=== PATIENT | male | born 1950 | race Caucasian/White ===

== ENCOUNTER 2020-05-15 23:57 | Emergency (ER) | payer OTHER ==
[2020-05-16] MEDS ORDERED: SODIUM CHLORIDE 0.9% 1,000 ML IV STA (00:25)
--- NOTE | 2020-05-16 00:42 | ED Physician Documentation ---
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 He was out for about an hour hour and a half. When he came inside and sat down he felt dizzy. He is unable to describe this further. He denies room spinning he denies lightheadedness. Just does not feel right. 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 His notes that usually has some edema to his lower extremities he do es not today. Review of Systems Constitutional: denies: Fever Eyes: denies: Decreased vision Ears: denies: Ear pain Nose: denies: Rhinorrhea / runny nose, Congestion Throat: denies: Sore throat Cardiac: denies: Chest pain / pressure, Palpitations Respiratory: denies: Dyspnea, Cough GI: denies: Abdominal Pain, Nausea, Vomiting : denies: Dysuria, Frequency Skin: denies: Rash, Lesions, Abrasion (s) Musculoskeletal: denies: Neck pain, Back pain, Extremity pain Neurologic: denies: Generalized weakness, Focal weakness, Numbness PD PAST MEDICAL HISTORY - Present Medications Home Medications: Ambulatory Orders Medication Instructions Recorded Confirmed Amox/Clav 875/125 [Augmentin] 1 each PO Q12H #20 tablet 05/16/20 - Allergies Allergies/Adverse Reactions: Allergies Allergy/AdvReac Type Severity Reaction Status Date / Time No Known Drug Allergies Allergy Verified 05/16/20 00:00 PD ED PE NORMAL - Vitals Vital signs reviewed: Yes (Hypertensive) - General General: Alert and oriented X 3, No acute distress, Well developed/nourished - HEENT HEENT: Atraumatic, PERRL, EOMI, Pharynx benign, Other (The right TM has inflammation along the umbo without distortion of landmarks the left TM is not visualized secondary to dense cerumen impaction.Mucous membranes are dry. There is no nystagmus) - Neck Neck: Supple, no meningeal sign, No bony TTP - Cardiac Cardiac: RRR, No murmur - Respiratory Respiratory: No respiratory distress, Clear bilaterally - Abdomen Abdomen: Normal bowel sounds, Soft, Non tender, Non distended, No organomegaly - Back Back: No CVA TTP, No spinal TTP - Derm Derm: Normal color, Warm and dry, No rash - Extremities Extremities: No deformity, Normal ROM s pain, No edema, No calf tenderness / cord - Neuro Neuro: Alert and oriented X 3, method consultant 2-12 intact Eye Opening: To Voice Motor: Obeys Commands Verbal: Oriented GCS Score: 14 - Psych Psych: Normal mood, Normal affect Results - Vitals Vitals: Vital Signs - 24 hr 05/16/20 05/16/20 05/16/20 00:00 02:07 04:07 Temperature 36.5 C Heart Rate 78 63 72 Respiratory 16 15 16 Rate Blood Pressure 189/89 H 164/86 H 142/89 H O2 Saturation 96 95 100 05/16/20 04:48 Temperature Heart Rate 78 Respiratory 16 Rate Blood Pressure 172/83 H O2 Saturation 95 Oxygen O2 Source Room air - EKG (time done) 00:14 Rate: Rate (enter#) (76) Intervals: Prolonged CA (borderline), Prolonged QT (borderline) Compare to prior EKG: Old EKG unavailable Computer interpretation: Agree with computer - Labs Labs: Laboratory Tests 05/16/20 05/16/20 05/16/20 00:45 00:45 00:45 WBC 6.1 RBC 4.69 L Hgb 16.0 Hct 45.4 MCV 96.8 H MCH 34.1 H MCHC 35.2 RDW 13.4 Plt Count 92 L MPV 11.2 Neut # (Auto) 5.3 Lymph # (Auto) 0.6 L [place] # (Auto) 0.2 Eos # (Auto) 0.0 Baso # (Auto) 0.0 Absolute Nucleated RBC 0.00 Nucleated RBC % 0.0 Sodium 134 L Potassium 3.9 Chloride 101 Carbon Dioxide 22 Anion Gap 11.0 BUN 16 Creatinine 0.8 Estimated GFR (MDRD) 96 Glucose 179 H Lactic Acid Calcium 8.9 Total Bilirubin 2.2 H AST 53 H ALT 50 Alkaline Phosphatase 94 Troponin I High Sens 15.5 Total Protein 7.6 Albumin 4.2 Globulin 3.4 Albumin/Globulin Ratio 1.2 Lipase 27 Urine Color Urine Clarity Urine pH Ur Specific [place] Urine Protein Urine Glucose (UA) Urine Ketones Urine Occult Blood Urine Nitrite Urine Bilirubin Urine Urobilinogen Ur Leukocyte Esterase Ur Microscopic Review Urine Culture Comments 05/16/20 05/16/20 00:45 01:21 WBC RBC Hgb Hct MCV MCH MCHC RDW Plt Count MPV Neut # (Auto) Lymph # (Auto) [place] # (Auto) Eos # (Auto) Baso # (Auto) Absolute Nucleated RBC Nucleated RBC % Sodium Potassium Chloride Carbon Dioxide Anion Gap BUN Creatinine Estimated GFR (MDRD) Glucose Lactic Acid 3.0 H* Calcium Total Bilirubin AST ALT Alkaline Phosphatase Troponin I High Sens Total Protein Albumin Globulin Albumin/Globulin Ratio Lipase Urine Color YELLOW Urine Clarity CLEAR Urine pH 6.0 Ur Specific [place] 1.025 Urine Protein NEGATIVE Urine Glucose (UA) 100 H Urine Ketones 15 H Urine Occult Blood NEGATIVE Urine Nitrite NEGATIVE Urine Bilirubin NEGATIVE Urine Urobilinogen 0.2 (NORMAL) Ur Leukocyte Esterase NEGATIVE Ur Microscopic Review NOT INDICATED Urine Culture Comments NOT INDICATED - Rads (name of study) chest Radiology: Prelim report reviewed (Impression: No consolidation), EMP read indepedently (On my read there is a questionable subtle infiltrate in the left base.), See rad report Procedures - IVC sono (time) 1214 Bedside IVC sono: IVC measures (cm) (1.05), IVC collapsed c insp (cm) (complete), Dehydration (est 1-2 liter deficit) PD MEDICAL DECISION MAKING - ED course Complexity details: reviewed results, re-evaluated patient, considered differential, d/w patient, d/w family ED course: 69-year-old male working outside today does not feel well presents to the emergency department on physical exam findings he does have some mild erythema to the right umbo. He does not have other symptoms of otitis. He is found to be dehydrated on interrogation the inferior vena cava. Is administered intravenous saline. He did not have nystagmus to suggest a labyrinthine cause of his dizziness. Patient improves with a liter of saline for hydration and we have treated him for the otitis on the right with Augmentin. I took a look at his chest x-ray personally and felt that he may have an infiltrate in the left base. Departure - Departure Disposition: 01 Home, Self Care Clinical Impression: Dehydration Otitis media Qualifiers: Otitis media type: suppurative Chronicity: acute Laterality: right Recurrence: non-recurrent Spontaneous tympanic membrane rupture: without spontaneous rupture Qualified Code(s): H66.001 - Acute suppurative otitis media without spontaneous rupture of ear drum, right ear Condition: Stable Instructions: ED Dehydration, ED Otitis Media Acute Adult Follow-Up: Jeremy Bai MD [Primary Care Provider] - Prescriptions: Amox/Clav 875/125 [Augmentin] 1 each PO Q12H #20 tablet Discharge Date/Time: 05/16/20 04:48
[2020-05-16 00:52] LABS: BASOPHILS % (AUTO) 0.3 %; EOSINOPHILS % (AUTO) 0.2 %; LYMPHOCYTES # (AUTO) 0.6 10^3/uL (1.5-3.5); MEAN CORPUSCULAR HEMOGLOBIN 34.1 pg (27.0-31.0); MEAN CORPUSCULAR HGB CONC 35.2 g/dL (32.0-36.0); MEAN CORPUSCULAR VOLUME 96.8 fL (80.0-94.0); MEAN PLATELET VOLUME 11.2 fL (7.4-11.4); MONOCYTES # (AUTO) 0.2 10^3/uL (0.0-1.0); MONOCYTES % (AUTO) 3.6 %; NEUTROPHILS # (AUTO) 5.3 10^3/uL (1.5-6.6); NEUTROPHILS % (AUTO) 86.4 %; PLT - PLATELET COUNT 92 10^3/uL (130-450); RED BLOOD COUNT 4.69 10^6/uL (4.70-6.10); RED CELL DISTRIBUTION WIDTH 13.4 % (12.0-15.0); WHITE BLOOD COUNT 6.1 x10^3/uL (4.8-10.8)
[2020-05-16 01:02] LABS: ALBUMIN 4.2 g/dL (3.2-5.5); ALBUMIN/GLOBULIN RATIO 1.2 (1.0-2.2); BILIRUBIN,TOTAL 2.2 mg/dL (0.2-1.0); CALCIUM 8.9 mg/dL (8.5-10.3); CREATININE 0.8 mg/dL (0.6-1.2); TOTAL PROTEIN 7.6 g/dL (6.7-8.2)
[2020-05-16 01:31] LABS: BILIRUBIN,URINE NEGATIVE (NEGATIVE); CLARITY,URINE CLEAR (CLEAR); GLUCOSE, URINE (UA) 100 mg/dL (NEGATIVE); KETONES,URINE (UA) 15 mg/dL (NEGATIVE); LEUKOCYTE ESTERASE, URINE NEGATIVE (NEGATIVE); NITRITE,URINE NEGATIVE (NEGATIVE); OCCULT BLOOD,URINE NEGATIVE (NEGATIVE); PROTEIN,URINE NEGATIVE (NEGATIVE); UROBILINOGEN,URINE 0.2 (NORMAL) E.U./dL (NORMAL)
[2020-05-16] MEDS ORDERED: AMOX/CLAV 875 MG/125 MG TABLET PO STA (04:34)
[2020-05-16 04:48] VITALS: BP 172/83
--- NOTE | 2020-05-16 09:39 | XRAY Report ---
PROCEDURE: Chest 1 View X-Ray INDICATIONS: chest pain TECHNIQUE: One view of the chest was acquired. COMPARISON: None FINDINGS: Surgical changes and devices: None. Lungs and pleura: No pleural effusions or pneumothorax. Lungs are clear. Mediastinum: Mediastinal contours appear normal. Heart size is mildly prominent. Bones and chest wall: No suspicious bony lesions. Overlying soft tissues appear unremarkable. IMPRESSION: No acute pulmonary process. The above findings are concordant with preliminary report. Reviewed by: Alicja Awan MD on 05/16/2020 9:37 AM PDT Approved by: Alicja Awan MD on 05/16/2020 9:37 AM PDT Station ID: [id number]
== END 2020-05-16 04:48 | disposition home or self-care (01) ==
LOC: ED 23:57
DX: E86.0 Dehydration (principal); H66.001 Acute suppurative otitis media without spontaneous rupture of ear drum, right ear; H61.22 Impacted cerumen, left ear; R91.8 Other nonspecific abnormal finding of lung field
CPT/HCPCS: 36415; 71045; 80053; 81003; 83605; 83690; 84484; 85025; 93005; 96360; 99284; A9270; 81001; 87086

== ENCOUNTER 2021-11-02 11:43 | Outpatient (CLI) | payer OTHER ==
[2021-11-02 15:23] LABS: ALBUMIN 3.7 g/dL (3.2-5.5); ALBUMIN/GLOBULIN RATIO 1.1 (1.0-2.2); BILIRUBIN,TOTAL 3.4 mg/dL (0.2-1.0); CALCIUM 9.2 mg/dL (8.5-10.3); CREATININE 0.8 mg/dL (0.6-1.2); POTASSIUM 3.8 mmol/L (3.5-5.0); TOTAL PROTEIN 7.2 g/dL (6.7-8.2)
--- NOTE | 2021-11-02 15:35 | XRAY Report ---
PROCEDURE: Shoulder 3 View RT INDICATIONS: PAIN OF RIGHT SHOULDER JOINT TECHNIQUE: 3 views of the shoulder were acquired. COMPARISON: None. FINDINGS: Bones: No fractures or dislocations. Moderate acromioclavicular joint and glenohumeral joint osteoar thritic changes are seen. No suspicious bony lesions. Visualized ribs appear intact. Soft tissues: No suspicious soft tissue calcifications. IMPRESSION: Moderate acromioclavicular joint and glenohumeral joint osteoarthritis. No shoulder frac ture or dislocation. No gross soft tissue abnormality. Reviewed by: Wesley Hebert MD on 11/02/2021 3:34 PM PST Approved by: Wesley Hebert MD on 11/02/2021 3:34 PM PST Station ID: [id number]
--- NOTE | 2021-11-02 15:35 | XRAY Report ---
PROCEDURE: Hip w/Pelvis 2-3V RT INDICATIONS: PAIN IN RIGHT HIP TECHNIQUE: AP pelvis with lateral view(s) of the right hip(s). COMPARISON: None. FINDINGS: Bones: No fractures or dislocations. Mild to moderate right hip joint osteoarthritic changes are see n with superior joint space narrowing, subchondral sclerosis and cyst formation and lateral marginal osteophyte formation. Prominence of the right femoral head neck junction is also seen which can be se en associated with cam-type femoral acetabular impingement. No avascular necrosis of femoral head. P elvic ring appears intact. No suspicious bony lesions. Soft tissues: The visualized bowel gas pattern is normal. No suspicious soft tissue calcifications. IMPRESSION: Mild to moderate right hip joint osteoarthritis. No fracture or dislocation. No evidence of avascular necrosis. Prominence of right femoral head neck junction which can be seen associated wi th cam-type femoral acetabular impingement. Reviewed by: Wesley Hebert MD on 11/02/2021 3:33 PM PST Approved by: Wesley Hebert MD on 11/02/2021 3:33 PM PST Station ID: [id number]
== END 2021-11-02 11:44 | disposition home or self-care (01) ==
LOC: DI.S 11:43
PROVIDERS: ATTEND Nurse Practitioner Family
DX: M19.011 Primary osteoarthritis, right shoulder (principal); M16.11 Unilateral primary osteoarthritis, right hip; R93.6 Abnormal findings on diagnostic imaging of limbs
CPT/HCPCS: 36415; 80053

== ENCOUNTER 2022-01-10 12:33 | Outpatient (CLI) | payer OTHER ==
--- NOTE | 2022-01-10 14:08 | Ultrasound Report ---
PROCEDURE: Abdomen Limited INDICATIONS: ELEVATED LIVER TRANSAMINSE LEVELS TECHNIQUE: Real-time focused scanning was performed of the abdomen, with image documentation. COMPARISON: None FINDINGS: The gallbladder is normal without stones, sludge, wall thickening, pericholecystic fluid, or sign. Probable fatty sparing in the gallbladder fossa. The liver is normal size measuring about 17 cm in length. The parenchyma is diffusely hyperechoic and quite coarse in echotexture. The liver surface appears micronodular. There is a cyst in the anterior right hepatic lobe measuring 2.2 cm. The distal pancreas is not well seen. The proximal portion appears normal. The right kidney is normal in morphology without hydronephrosis. Measures 12.3 cm in length. 1.6 cm parapelvic cyst in the lowe r pole. IMPRESSION: 1. Coarse, heterogeneous hepatic parenchyma with possible micronodular liver margin suspicious for ea rly cirrhosis. 2. 2.2 cm hepatic cyst. 3. Normal gallbladder. 4. Suboptimal visualization of the entire pancreas. Reviewed by: Brittani Patterson MD on 01/10/2022 2:06 PM PST Approved by: Brittani Patterson MD on 01/10/2022 2:06 PM PST Station ID: [id number]
== END 2022-01-10 12:34 | disposition home or self-care (01) ==
LOC: DI 12:33
PROVIDERS: ATTEND Nurse Practitioner Family
DX: K76.89 Other specified diseases of liver (principal); R74.01 Elevation of levels of liver transaminase levels

== ENCOUNTER 2022-03-30 14:17 | Outpatient (CLI) | payer OTHER ==
[2022-03-30] MEDS ORDERED: IOPAMIDOL-300 100 ML VIAL ONE ×2 (14:45→15:32)
[2022-03-30 15:13] LABS: POTASSIUM 3.9 mmol/L (3.5-5.0)
[2022-03-30] MEDS ORDERED: IOPAMIDOL-300 100 ML VIAL IVP ONE (15:40)
--- NOTE | 2022-03-30 18:16 | CT Report ---
PROCEDURE: ABDOMEN W/WO INDICATIONS: KIDNEY CYST CONTRAST: IV CONTRAST: Isovue 300 ml: 140 PO CONTRAST: *NO PO CONTRAST TECHNIQUE: 4 phase scanning was performed. After the administration of intravenous contrast, 5 mm thick section s acquired from the diaphragm to the symphysis. 5 mm coronal and sagittal reformats were acquired. For radiation dose reduction, the following was used: automated exposure control, adjustment of mA a nd/or kV according to patient size. COMPARISON: Abdominal ultrasound 01/10/2022 FINDINGS: Image quality: Excellent. Lung bases: Lung bases are clear. Heart size is normal. Kidneys: The kidneys are normal size. The left is slightly inferior due to splenic enlargement. A 1. 4 cm exophytic cyst arises from the upper pole left kidney and a subcentimeter cortical cyst present in the midpole. 1.7 cm right lower pole parapelvic cyst is present. There are several small left intr arenal parapelvic cysts. No suspicious enhancing masses. No hydroureter or ureteral calcification. Other solid organs: The liver demonstrates right lobe atrophy with left and caudate lobe hypertrophy . 1.4 cm cyst in the left hepatic lobe near the falciform ligament. 1.2 cm cyst in segment VII of the liver dome. No suspicious enhancing mass. Gallbladder appears normal. Adrenal glands, pancreas are n ormal size. Biliary tree is nondilated. The spleen is enlarged. It measures 16.2 x 18.9 x 7.5 cm. Nodes and vessels: There are numerous nonenlarged periceliac and periaortic lymph nodes. Several mes enteric lymph nodes are present, borderline in size. No bulky adenopathy. The abdominal aorta and IVC are normal caliber. No abdominal aortic atherosclerotic calcification. Several small vessels in the epigastric region probably developing varices. Bowel and peritoneum: Unenhanced bowel loops are normal in caliber. No free fluid or air. Bones: No suspicious bony lesions. No vertebral body compression fractures. Mild scoliosis. Miscellaneous: No ventral hernias. IMPRESSION: 1. Left cortical and bilateral parapelvic cysts. No solid renal mass. 2. 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 Several reactive appearing retroperitoneal and mesenteric lymph nodes without enlargement. Reviewed by: Brittani Patterson MD on 03/30/2022 6:14 PM PDT Approved by: Brittani Patterson MD on 03/30/2022 6:14 PM PDT Station ID: [id number]
== END 2022-03-30 14:18 | disposition home or self-care (01) ==
LOC: DI 14:17
PROVIDERS: ATTEND Nurse Practitioner Family
DX: K74.60 Unspecified cirrhosis of liver (principal); K76.6 Portal hypertension; R16.1 Splenomegaly, not elsewhere classified; N28.1 Cyst of kidney, acquired
CPT/HCPCS: 36415; 74170; 80048; Q9967

== ENCOUNTER 2022-04-25 09:21 | Outpatient (CLI) | payer OTHER ==
--- NOTE | 2022-04-25 11:49 | MRI Report ---
PROCEDURE: Shoulder RT W/O INDICATIONS: ROTATOR CUFF TEAR OR RUPTURE TECHNIQUE: Noncontrast oblique coronal T2 fast spin echo with fat saturation, oblique sagittal T1 spin echo and T2 fast spin echo with fat saturation, axial T1 spin echo and T2 fast spin echo with fat saturation t hrough the shoulder. COMPARISON: Right shoulder radiograph dated 11/02/2021. FINDINGS: Image quality: Excellent. Rotator cuff: There is full-thickness rupture involving distal supraspinatus at its insertion on gabino ral head with up to 4.5 cm medial retraction of torn tendon fibers to the level of glenoid. Moderate grade articular surface partial-thickness tear involving distal infraspinatus at its insertion on hum eral head is also seen extending to musculotendinous junction. Tendinosis and low-grade partial-thick ness tear involving superior fibers of distal subscapularis is seen. Mild to moderate supraspinatus m uscle atrophy is seen on sagittal images. Bones and bursae: No bone marrow contusions or fractures. There is moderate acromioclavicular joint osteoarthritis with downward osteophyte formation depressing on musculotendinous junction of supraspi natus. Mild to moderate glenohumeral joint osteoarthritic changes also seen. Moderate joint effusion and subacromial subdeltoid fluid is noted, no gross loose bodies. Capsule and soft tissues: Subtle signal abnormality and contour irregularity involving superior anter ior labrum at 12 to 1:00 position is seen which may indicate subtle superior anterior labral tear. Th e long head of the biceps tendon is not visualized intra-articularly. The rotator interval appears n ormal, without fibrosis. The coracohumeral ligament is normal in thickness. IMPRESSION: 1. Full-thickness rupture of distal supraspinatus at its insertion on humeral head with up to 4.5 cm medial retraction of torn tendon fibers to the level of glenoid. Tendinosis and moderate grade articu lar surface partial-thickness tear involving distal infraspinatus extending to musculotendinous junct ion. Tendinosis and low-grade partial-thickness tear involving superior fibers of distal subscapulari s. Mild to moderate supraspinatus muscle atrophy. 2. Moderate acromioclavicular joint osteoarthritis and mild to moderate glenohumeral joint osteoarthr itis. Moderate joint effusion and subacromial subdeltoid bursal fluid. 3. Suggestion of subtle superior anterior labral tear at 12 to 1:00 position. 4. Nonvisualization of proximal intra-articular portion of long head of biceps suggestive of ruptured proximal biceps tendon. Reviewed by: Wesley Hebert MD on 04/25/2022 11:47 AM PDT Approved by: Wesley Hebert MD on 04/25/2022 11:47 AM PDT Station ID: [id number]
== END 2022-04-25 09:22 | disposition home or self-care (01) ==
LOC: DI 09:21
PROVIDERS: ATTEND Orthopaedic Surgery
DX: M75.121 Complete rotator cuff tear or rupture of right shoulder, not specified as traumatic (principal); M19.011 Primary osteoarthritis, right shoulder

== ENCOUNTER 2022-05-21 13:57 | Outpatient (CLI) | payer OTHER ==
[2022-05-21 19:54] LABS: CREATININE 0.9 mg/dL (0.6-1.2); POTASSIUM 3.8 mmol/L (3.5-5.0)
[2022-05-21 20:00] LABS: CREATININE,URINE 64.8 mg/dL; MICROALBUM/CREATININE RATIO,UR 6.2 ug/mg (<30.0); MICROALBUMIN,URINE 0.4 mg/dL (0-300.0)
[2022-05-23 07:10] LABS: HBsAG SCREEN Negative (Negative); HCV AB 0.1 s/co ratio (0.0-0.9); HEPATITIS B SURFACE AB QUANT <3.1 mIU/mL (Immunity>9.9); HEPATITIS BE ANTIGEN Negative (Negative)
== END 2022-05-21 13:58 | disposition home or self-care (01) ==
LOC: LAB.S 13:57
PROVIDERS: ATTEND Internal Medicine Nephrology
DX: K74.01 Hepatic fibrosis, early fibrosis (principal)
CPT/HCPCS: 36415; 80048; 82043; 82570; 86317; 86704; 86803; 87340; 87350

== ENCOUNTER 2022-05-24 13:23 | Outpatient (CLI) | payer OTHER ==
--- NOTE | 2022-05-24 17:57 | Ultrasound Report ---
PROCEDURE: Retroperitoneal ultrasound INDICATIONS: RENAL CYST TECHNIQUE: Real-time scanning was performed of the retroperitoneal organs, with image documentation. COMPARISON: None. FINDINGS: Kidneys: Kidneys are normal in size. Right kidney measures 13.1 cm long; left kidney measures 11.9 cm long. Right renal cortical thickness is 1.9 cm; left renal cortical thickness is 1.4 cm. No pauly d masses, hydronephrosis, or nephrolithiasis. Left foraminal stenosis measuring 1.5 cm in the upper pole, 1.4 and 1.3 cm in the lower pelvis. Previously seen cyst in the lower pole of the right kidney is no longer visualized on the current exam. Bladder: Pre-void bladder volume is 618 mL. Post-void residual is 174 mL. Pre-void images demonstr ate no intraluminal masses or stones. On pre-void images, bilateral ureteral jets are noted with col or Doppler interrogation. (Of note, ureteral jets may not be detectable in up to 25% of cases due to insufficient differences in specific gravity between ureteral and bladder urine). Miscellaneous: Prostate measures 4.3 x 3.4 x 5.0 cm IMPRESSION: 1. Left renal cysts without shadowing calculi or hydronephrosis. 2. Mild prostatic hypertrophy and postvoid residual Reviewed by: Len Sotelo MD on 05/24/2022 4:55 PM DARYL Approved by: Lne Sotelo MD on 05/24/2022 4:55 PM DARYL Station ID: [id number]
== END 2022-05-24 13:24 | disposition home or self-care (01) ==
LOC: DI 13:23
PROVIDERS: ATTEND Internal Medicine Nephrology
DX: N28.1 Cyst of kidney, acquired (principal); N40.0 Benign prostatic hyperplasia without lower urinary tract symptoms

== ENCOUNTER 2022-08-20 11:06 | Outpatient (CLI) | payer OTHER | END 2022-08-20 11:07 | disposition home or self-care (01) | LOC: LAB.S 11:06 | PROVIDERS: ATTEND Internal Medicine Nephrology | DX: K74.01 Hepatic fibrosis, early fibrosis (principal); N28.1 Cyst of kidney, acquired | CPT/HCPCS: 36415; 80076; 86708 ==

== ENCOUNTER 2022-08-20 13:43 | Outpatient (CLI) | payer OTHER | END 2022-08-20 13:44 | disposition home or self-care (01) | LOC: LAB.S 13:43 | PROVIDERS: ATTEND Internal Medicine Nephrology | DX: K74.01 Hepatic fibrosis, early fibrosis (principal); N28.1 Cyst of kidney, acquired ==

== ENCOUNTER 2022-08-23 08:00 | Outpatient (CLI) | payer OTHER ==
[2022-08-23 19:56] LABS: ALBUMIN 3.7 g/dL (3.2-5.5); BILIRUBIN,DIRECT 0.3 mg/dL (0.1-0.5); BILIRUBIN,TOTAL 1.8 mg/dL (0.2-1.0); TOTAL PROTEIN 7.2 g/dL (6.7-8.2)
== END 2022-08-23 23:59 | disposition home or self-care (01) ==
LOC: LAB.S 08:00
PROVIDERS: ATTEND Internal Medicine Nephrology
DX: K74.01 Hepatic fibrosis, early fibrosis (principal); N28.1 Cyst of kidney, acquired
CPT/HCPCS: 36415; 80076

== ENCOUNTER 2023-04-18 14:08 | Outpatient (CLI) | payer OTHER | END 2023-04-18 14:09 | disposition home or self-care (01) | LOC: RT 14:08 | PROVIDERS: ATTEND Internal Medicine Cardiovascular Disease | DX: I50.9 Heart failure, unspecified (principal) | CPT/HCPCS: 93005 ==

== ENCOUNTER 2023-05-02 14:34 | Outpatient (CLI) | payer OTHER ==
[2023-05-02 20:02] LABS: BILIRUBIN,URINE NEGATIVE (NEGATIVE); GLUCOSE, URINE (UA) >=1000 mg/dL (NEGATIVE); KETONES,URINE (UA) NEGATIVE (NEGATIVE); LEUKOCYTE ESTERASE, URINE NEGATIVE (NEGATIVE); NITRITE,URINE NEGATIVE (NEGATIVE); OCCULT BLOOD,URINE NEGATIVE (NEGATIVE); PH,URINE 5.5 PH (5.0-7.5); PROTEIN,URINE NEGATIVE (NEGATIVE); UROBILINOGEN,URINE 0.2 (NORMAL) E.U./dL (NORMAL)
[2023-05-02 20:04] LABS: CLARITY,URINE CLEAR (CLEAR)
[2023-05-02 20:12] LABS: ALBUMIN 3.4 g/dL (3.2-5.5); BILIRUBIN,TOTAL 2.6 mg/dL (0.2-1.0); CALCIUM 8.5 mg/dL (8.5-10.3); CREATININE 0.9 mg/dL (0.6-1.2); POTASSIUM 3.7 mmol/L (3.5-5.0); TOTAL PROTEIN 6.8 g/dL (6.7-8.2)
== END 2023-05-02 14:35 | disposition home or self-care (01) ==
LOC: LAB.S 14:34
PROVIDERS: ATTEND Internal Medicine Cardiovascular Disease
DX: I50.9 Heart failure, unspecified (principal)
CPT/HCPCS: 36415; 80053; 81003

== ENCOUNTER 2024-03-20 08:00 | Outpatient (CLI) | payer MEDICARE, OTHER ==
--- NOTE | 2024-03-20 17:47 | XRAY Report ---
PROCEDURE: Shoulder 2+V RT INDICATIONS: RIGHT SHOULDER CONTUSION TECHNIQUE: 3 views of the shoulder were acquired. COMPARISON: MRI shoulder 05/14/2022. FINDINGS: Bones: No fractures or dislocations. Moderate acromioclavicular joint osteoarthritic changes. Mild glenohumeral joint osteoarthritic changes. No suspicious bony lesions. Visualized ribs appear intact . Soft tissues: No suspicious soft tissue calcifications. The visualized lungs are within normal limi ts. IMPRESSION: 1.No acute bony abnormality. 2.Moderate acromioclavicular and mild glenohumeral joint osteoarthritis. Reviewed by: Joe Baer MD on 03/20/2024 5:45 PM PDT Approved by: Joe Baer MD on 03/20/2024 5:45 PM PDT Station ID: [id number]
== END 2024-03-20 23:59 | disposition home or self-care (01) ==
LOC: DI.S 08:00
PROVIDERS: ATTEND Physician Assistant Medical
DX: M19.011 Primary osteoarthritis, right shoulder (principal)

== ENCOUNTER 2024-04-09 13:06 | Outpatient (CLI) | payer MEDICARE, OTHER ==
--- NOTE | 2024-04-09 16:19 | MRI Report ---
Shoulder RT WO CLINICAL HISTORY: 73 years of age, Male, SHOULDER TRAUMA. Comparison: 04/25/2022 Technique: Multiplanar, multisequence MRI of the right shoulder was performed without intravenous co ntrast. IV Contrast: Not Administered. Findings: Somewhat limited exam given patient motion. Osseous acromial outlet: Severe degenerative changes of the acromial clavicular joint. 1 acromion on sagittal imaging. No os acromiale. Large subacromial/subdeltoid bursal fluid. Rotator cuff muscles and tendons: There is full-thickness, fullwidth tear of the supraspinatus, and i nfraspinatus. The supraspinatus tendon is retracted to the level of the glenoid. The infraspinatus te ndon is retracted to the level of the mid humeral head. There is marked tendinosis of the infraspinat us. Small amount of fluid tracking along the myotendinous junction of the infraspinatus. The teres mi nor is unremarkable. Full-thickness, fullwidth tear of the subscapularis, with tendon retraction to t he level of the glenoid as well. Severe fatty atrophy of the supraspinatus and the subscapularis. Muscle edema of the infraspinatus wi thout fatty atrophy. Labral and capsular structures: Diffuse labral degeneration. Biceps tendon and anchor: Medial dislocation of the extra-articular biceps tendon, located at the ant erior glenohumeral joint. Marked tendinosis of the intra-articular biceps tendon. Osseous and cartilaginous structures: Subchondral cystic changes in the greater tuberosity, reactive. High-grade chondral thinning in the anterior humeral head, and the glenoid. Miscellaneous: Moderate glenohumeral effusion. Mild subcoracoid bursitis. No intra-articular bodies . The remaining muscles are normal in bulk without evidence of atrophy or edema. IMPRESSION: 1.Massive rotator cuff tear involving the supraspinatus, infraspinatus, and the subscapularis. Muscle edema of the infraspinatus without fatty atrophy, suggestive of acute etiology. 2.Medial, intra-articular dislocation of the extra-articular biceps tendon. Marked tendinosis of the intra-articular biceps tendon. 3.Moderate chondrosis of the glenohumeral joint. 4.Severe degenerative changes of the acromioclavicular joint. Reviewed by: Agueda Daniel MD on 04/09/2024 4:17 PM PDT Approved by: Agueda Daniel MD on 04/09/2024 4:17 PM PDT Station ID: [id number]
== END 2024-04-09 13:07 | disposition home or self-care (01) ==
LOC: DI 13:06
PROVIDERS: ATTEND Orthopaedic Surgery Sports Medicine
DX: M75.121 Complete rotator cuff tear or rupture of right shoulder, not specified as traumatic (principal); M67.813 Other specified disorders of tendon, right shoulder; M94.211 Chondromalacia, right shoulder; M19.011 Primary osteoarthritis, right shoulder

== ENCOUNTER 2024-04-16 10:28 | Outpatient (CLI) | payer MEDICARE, BC ==
[2024-04-16 14:58] LABS: BASOPHILS % (AUTO) 0.5 %; EOSINOPHILS # (AUTO) 0.1 10^3/uL (0.0-0.7); EOSINOPHILS % (AUTO) 3.8 %; HGB - HEMOGLOBIN 12.8 g/dL (14.0-18.0); LYMPHOCYTES # (AUTO) 0.8 10^3/uL (1.5-3.5); LYMPHOCYTES % (AUTO) 38.9 %; MEAN CORPUSCULAR HEMOGLOBIN 34.1 pg (27.0-31.0); MEAN CORPUSCULAR HGB CONC 33.7 g/dL (32.0-36.0); MEAN CORPUSCULAR VOLUME 101.3 fL (80.0-94.0); MONOCYTES # (AUTO) 0.4 10^3/uL (0.0-1.0); MONOCYTES % (AUTO) 16.6 %; NEUTROPHILS # (AUTO) 0.9 10^3/uL (1.5-6.6); NEUTROPHILS % (AUTO) 40.2 %; PLT - PLATELET COUNT 66 10^3/uL (130-450); RED BLOOD COUNT 3.75 10^6/uL (4.70-6.10); RED CELL DISTRIBUTION WIDTH 14.3 % (12.0-15.0); WHITE BLOOD COUNT 2.1 x10^3/uL (4.8-10.8)
[2024-04-16 15:19] LABS: SLIDE REVIEW? Indicated
[2024-04-16 16:38] LABS: PLATELET ESTIMATE, MANUAL DECREASED (<130,000) (NORMAL); PLATELET MORPHOLOGY NORMAL APPEARANCE (NORMAL); RBC MORPHOLOGY (MULTIPLE) NORMAL APPEARANCE (NORMAL)
== END 2024-04-16 10:29 | disposition home or self-care (01) ==
LOC: LAB.S 10:28
PROVIDERS: ATTEND Registered Nurse
DX: D69.6 Thrombocytopenia, unspecified (principal)
CPT/HCPCS: 36415; 85025

== ENCOUNTER 2024-04-29 15:45 | Outpatient (CLI) | payer MEDICARE, BC ==
--- NOTE | 2024-04-29 17:55 | XRAY Report ---
PROCEDURE: Ankle 3+V LT INDICATIONS: LEFT ANKLE PAIN TECHNIQUE: 3 views of the ankle were acquired. COMPARISON: None. FINDINGS: Bones: No fractures or dislocations. Ankle mortise is normally aligned. No suspicious bony lesions . Prominent calcaneal osteophyte. Soft tissues: Mild ankle edema. Achilles tendon appears normal. IMPRESSION: No visualized acute fracture or dislocation. However, occult injury cannot be excluded. Recommend arnold rt interval imaging follow-up in 7-10 days as clinically indicated for additional evaluation. Reviewed by: Alicja Awan MD on 04/29/2024 5:53 PM PDT Approved by: Alicja Awan MD on 04/29/2024 5:53 PM PDT Station ID: [id number]
== END 2024-04-29 23:59 | disposition home or self-care (01) ==
LOC: DI.S 15:45
PROVIDERS: ATTEND Registered Nurse
DX: M25.572 Pain in left ankle and joints of left foot (principal); M79.672 Pain in left foot; L03.90 Cellulitis, unspecified; R22.42 Localized swelling, mass and lump, left lower limb

== ENCOUNTER 2024-04-30 10:31 | Outpatient (CLI) | payer MEDICARE, BC ==
[2024-04-30 14:22] LABS: BASOPHILS % (AUTO) 0.4 %; EOSINOPHILS % (AUTO) 0.5 %; HCT - HEMATOCRIT 37.8 % (42.0-52.0); HGB - HEMOGLOBIN 12.9 g/dL (14.0-18.0); LYMPHOCYTES # (AUTO) 0.8 10^3/uL (1.5-3.5); LYMPHOCYTES % (AUTO) 10.5 %; MEAN CORPUSCULAR HEMOGLOBIN 33.6 pg (27.0-31.0); MEAN CORPUSCULAR HGB CONC 34.1 g/dL (32.0-36.0); MEAN CORPUSCULAR VOLUME 98.4 fL (80.0-94.0); MEAN PLATELET VOLUME 11.9 fL (7.4-11.4); MONOCYTES # (AUTO) 0.9 10^3/uL (0.0-1.0); NEUTROPHILS % (AUTO) 76.2 %; PLT - PLATELET COUNT 154 10^3/uL (130-450); RED BLOOD COUNT 3.84 10^6/uL (4.70-6.10); RED CELL DISTRIBUTION WIDTH 13.1 % (12.0-15.0); WHITE BLOOD COUNT 7.8 x10^3/uL (4.8-10.8)
[2024-04-30 15:12] LABS: ALBUMIN 3.5 g/dL (3.2-5.5); BILIRUBIN,TOTAL 2.9 mg/dL (0.2-1.0); CALCIUM 9.4 mg/dL (8.5-10.3); CRP - C-REACTIVE PROTEIN 6.8 mg/dL (<0.5); POTASSIUM 3.9 mmol/L (3.5-4.5); URIC ACID 8.1 mg/dL (4.4-7.6)
== END 2024-04-30 10:32 | disposition home or self-care (01) ==
LOC: LAB.S 10:31
PROVIDERS: ATTEND Registered Nurse
DX: M79.662 Pain in left lower leg (principal); M25.572 Pain in left ankle and joints of left foot; L03.90 Cellulitis, unspecified; R22.42 Localized swelling, mass and lump, left lower limb
CPT/HCPCS: 36415; 80053; 84550; 85025; 86140

== ENCOUNTER 2024-05-04 10:53 | Outpatient (CLI) | payer MEDICARE, BC ==
--- NOTE | 2024-05-04 16:36 | Ultrasound Report ---
PROCEDURE: Duplex Ext Veins Left INDICATIONS: LEFT CALF PAIN, SWELLING TECHNIQUE: Real-time imaging, as well as color and pulse Doppler interrogation, were performed of the lower extr emity deep veins from the inguinal ligament to the popliteal fossa. Attempted visualization of the ca lf veins was performed. COMPARISON: None. FINDINGS: The deep veins are normally compressible, and free of intraluminal thrombus. Color and pu lse Doppler demonstrate normal phasic intraluminal flow. There is normal augmentation response to di stal compression maneuver. IMPRESSION: No deep venous thrombosis of the visualized lower extremity. Reviewed by: Kamaljit Morocho MD on 05/04/2024 4:34 PM PDT Approved by: Kamaljit Morocho MD on 05/04/2024 4:34 PM PDT Station ID: [id number]
== END 2024-05-04 10:54 | disposition home or self-care (01) ==
LOC: DI 10:53
PROVIDERS: ATTEND Registered Nurse
DX: M79.662 Pain in left lower leg (principal); M25.572 Pain in left ankle and joints of left foot; L03.90 Cellulitis, unspecified; R22.42 Localized swelling, mass and lump, left lower limb

== ENCOUNTER 2024-06-03 14:00 | Outpatient (CLI) | payer MEDICARE, BC ==
--- NOTE | 2024-06-03 14:49 | Ultrasound Report ---
PROCEDURE: Duplex Ext Veins Left INDICATIONS: EDEMA TECHNIQUE: Real-time imaging, as well as color and pulse Doppler interrogation, were performed of the lower extr emity deep veins from the inguinal ligament to the popliteal fossa. Attempted visualization of the ca lf veins was performed. COMPARISON: None. FINDINGS: The deep veins are normally compressible, and free of intraluminal thrombus. Color and pu lse Doppler demonstrate normal phasic intraluminal flow. There is normal augmentation response to di stal compression maneuver. IMPRESSION: No deep venous thrombosis of the visualized lower extremity. Reviewed by: Wesley Hebert MD on 06/03/2024 2:48 PM PDT Approved by: Wesley Hebert MD on 06/03/2024 2:48 PM PDT Station ID: [id number]
== END 2024-06-03 14:01 | disposition home or self-care (01) ==
LOC: DI 14:00
PROVIDERS: ATTEND Registered Nurse
DX: R60.0 Localized edema (principal)